=== PATIENT | female | born 1975 | race Caucasian/White ===

== ENCOUNTER 2025-05-09 14:30 | Emergency (ER) | payer OTHER, SELFPAY ==
[2025-05-09 14:35] VITALS: BP 128/88
--- NOTE | 2025-05-09 15:31 | ED.SKININJ ---
HPI-Injury
General
Chief Complaint: Skin Problem
Source: patient
Exam Limitations: none
Time Seen by Provider: 05/09/25 15:19
History of Present Illness-Injury
Initial Injury comments:
50-year-old female otherwise healthy presents complaining of a slightly raised area of redness to the right thigh she noticed starting 3 days ago and got worse. She denies any drainage. She denies any new fatigue or joint pain. No sweats or
chills. No known tick bites. She was initially concerned about a blood clot. She denies chest pain or shortness of breath. No other complaints
Past History
Past History
ED Past Medical History: Other (Migraine headaches)
ED Past Surgical History: Gynecological
Social History
Tobacco: Non-smoker
Alcohol: None
Drug: None
Personal:
Living: with family
Family History
Family History: Hypertension
Phy Exam
Physical Exam
Physical Exam:
General: Well-appearing female no acute respiratory distress
Skin: Right medial thigh with erythema and subtle induration noted at the inguinal crease. There is no fluctuance. There is no drainage. The rest of the leg is not swollen or edematous no obvious puncture wound
Vascular: 2+ DP pulse bilateral no calf tenderness
Musculoskeletal exam: Range of motion right leg
Course
Vital Signs
Initial and Last Documented VS:
Initial Vital Signs
Temp Pulse Resp BP Pulse Ox
98.4 F 93 16 128/88 99
05/09/25 14:35 05/09/25 14:35 05/09/25 14:35 05/09/25 14:35 05/09/25 14:35
Last Documented Vital Signs
Temp Pulse Resp BP Pulse Ox
98.4 F 93 16 128/88 99
05/09/25 14:35 05/09/25 14:35 05/09/25 14:35 05/09/25 14:35 05/09/25 14:35
MDM/Problems Addressed
Differential Diagnosis Includes:
Erythema right medial thigh with induration. Consider cellulitis versus insect bite. No clinical evidence of fluctuance to suggest abscess. Did offer ultrasound however patient after thinking about it was not concerned about DVT. I agree that
this would be an atypical presentation of a DVT. Will cover for cellulitis. Return precautions were given. Offered Lyme testing as well however patient declined.
*Pulse Oximetry
SaO2: 99
Oxygen Mode of Delivery: Room air
Patient hypoxic: no
*Critical Care Note
Total Time (30-74mins, 75-104mins- exclusive of procedures): Not Applicable
ED Attending Note
-
Portions of this chart may have been created with voice recognition software.� Occasional wrong word or��sound alike� substitutions may have occurred due to the inherent limitations of voice recognition software.
Discharge Plan
Departure
Patient Disposition: Home (Routine Discharge)
Date of Disposition: 05/09/25
Time of Disposition: 15:33
Patient with high blood pressure during this ER visit?: No
Discharge Problem:
Cellulitis
Instructions: Cellulitis (Skin Infection), Adult (DC)
Prescriptions:
New
doxycycline hyclate 100 mg capsule
100 mg PO BID Qty: 14 0RF
Activity Restrictions/Additional Instructions:
Please return here for increasing swelling chest pain shortness of breath or other concerning findings. Use warm compresses to the area.
Interventions
Interventions:
*Risk Screen - Suicide Last Done: 05/09/25 14:41
*Neglect/Abuse Screening Last Done: 05/09/25 14:41
*ED- Fall Risk Assessment Last Done: 05/09/25 15:33
*ED COVID-19 Vaccine History Last Done: 05/09/25 15:33
Discharge Date and Time
Print Language: THAI
== END 2025-05-09 15:41 | disposition home or self-care (01) ==
LOC: EMR 14:30
PROVIDERS: EMERGENCY PHYSICIAN Emergency Medicine; FAMILY PHYSICIAN Family Medicine Hospice and Palliative Medicine
DX: L03.115 Cellulitis of right lower limb (principal)
CPT/HCPCS: 99283